=== PATIENT | male | born 1970 | race Caucasian/White ===

== ENCOUNTER 2017-11-12 23:22 | Emergency (ER) | payer SELFPAY ==
[2017-11-13] MEDS ORDERED: MORPHINE SULFATE 10 MG/ML INJ IV ONE (01:02)
[2017-11-13] MEDS ORDERED: ONDANSETRON HCL INJ/PF 4 MG/2 ML SDV IV ONE (01:02)
[2017-11-13] MEDS ORDERED: NORMAL SALINE 1000 ML 1,000 ML IV ONE (01:02)
--- NOTE | 2017-11-13 01:03 | ER Document Report ---
ED GI/ - General Chief Complaint: Abdominal Pain Stated Complaint: ABDOMINAL PAIN Time Seen by Provider: 11/13/17 00:52 Notes: Patient is a 47-year-old male who comes emergency department for chief complaint of nominal pain that wraps around to his back. Symptoms started yesterday with vomiting, improved but then returns suddenly today with severe pain and a dry heaving episode. Reports decreased urination but not dysuria, states he was shaking and broke out into a sweat earlier, no fever. Denies any abdominal surgeries, daily medications, he did pass a kidney stone once but otherwise denies any medical history. TRAVEL OUTSIDE OF THE [place] IN LAST 30 DAYS: No - Related Data Allergies/Adverse Reactions: No Known Allergies Allergy (Verified 03/21/15 17:20) Past Medical History - General Information source: Patient - Social History Smoking Status: Never Smoker Drug Abuse: None Lives with: Alone Family History: Arthritis, DM, Hypertension Renal/ Medical History: Reports: Hx Kidney Stones Musculoskeletal Medical History: Reports Hx Arthritis, Reports Hx Musculoskeletal Deformity, Reports Hx Musculoskeletal Trauma - Immunizations Immunizations up to date: No Hx Diphtheria, Pertussis, Tetanus Vaccination: No Review of Systems - Review of Systems Constitutional: No symptoms reported EENT: No symptoms reported Cardiovascular: No symptoms reported Respiratory: No symptoms reported Gastrointestinal: See HPI Genitourinary: See HPI Male Genitourinary: See HPI Musculoskeletal: No symptoms reported Skin: No symptoms reported Hematologic/Lymphatic: No symptoms reported Neurological/Psychological: No symptoms reported Physical Exam - Vital signs Vitals: Temp Pulse Resp BP Pulse Ox 97.4 F 70 20 115/76 99 11/12/17 23:40 11/12/17 23:40 11/12/17 23:40 11/12/17 23:40 11/12/17 23:40 - Notes Notes: GENERAL: Alert, interacts well. Patient does not appear to be in any distress. HEAD: Normocephalic, atraumatic. EYES: Pupils equal, round, and reactive to light. Extraocular movements intact. ENT: Oral mucosa moist, tongue midline. NECK: Full range of motion. Supple. Trachea midline. LUNGS: Clear to auscultation bilaterally, no wheezes, rales, or rhonchi. No respiratory distress. HEART: Regular rate and rhythm. No murmur ABDOMEN: Tender in the left mid to lower abdomen, remaining abdomen unremarkable EXTREMITIES: Moves all 4 extremities spontaneously. No edema, normal radial and dorsalis pedis pulses bilaterally. No cyanosis. BACK: no cervical, thoracic, lumbar midline tenderness. No saddle anesthesia, normal distal neurovascular exam. No CVA tenderness. NEUROLOGICAL: Alert and oriented x3. Normal speech. [cranial nerves II through XII grossly intact]. PSYCH: Normal affect, normal mood. SKIN: Warm, dry, normal turgor. No rashes or lesions noted. Course - Re-evaluation Re-evalutation: Patient is well-appearing on exam, he does have left lower abdominal pain on palpation but otherwise his examination is unremarkable. Vital signs unremarkable. CBC shows mild leukocytosis with elevation of neutrophils but no bandemia. Chemistry generally unremarkable. Urinalysis shows a lot of hematuria, trace leukocyte esterase and a few white blood cells. No nitrites or bacteria. Culture placed. Discussed with patient, decision was made to perform CAT scan. This shows 5 mm proximal ureteral stone on the left, some hydronephrosis and hydroureter. Discussed with patient again. Patient states he feels great, he is ready to go home. Discussed possible signs of early infection, consultation with [facility]. Patient declines. He states he is ready to leave, he does not want a follow-up out of town, he wants an in town referral. He states he will come back if he worsens in any way. He will be covered with Keflex in addition to symptom management. He states he will follow-up with local urology by calling on Wednesday. Stable at time of discharge. - Vital Signs Vital signs: Temp Pulse Resp BP Pulse Ox 97.4 F 62 14 124/79 98 11/13/17 05:14 11/13/17 05:14 11/13/17 05:14 11/13/17 05:14 11/13/17 05:14 - Laboratory Result Diagrams: 11/13/17 01:05 11/13/17 01:05 Laboratory results interpreted by me: 11/13/17 11/13/17 11/13/17 01:05 01:05 03:08 WBC 12.3 H Seg Neutrophils % 88.9 H Lymphocytes % 6.3 L Absolute Neutrophils 10.9 H BUN 23 H Glucose 111 H Urine Protein 30 H Urine Blood LARGE H Urine Urobilinogen 2.0 H Ur Leukocyte Esterase TRACE H Discharge - Discharge Clinical Impression: Left sided abdominal pain, Ureterolithiasis Condition: Stable Disposition: HOME, SELF-CARE Additional Instructions: Your passing a kidney stone. The stone is 5 mm, on the left side. You will need to be managed by urology, please see the referral below, call Wednesday to set up your close follow-up. Take medications as prescribed. We are covering with Keflex antibiotics just in case as well, we have a urine culture growing. Return immediately if you worsen including severe pain, uncontrolled vomiting, fever of 100.4 or greater, or any other concerning or worsening symptoms. [facility] [address] [place] [address] Prescriptions: Morphine Sulfate [Morphine Ir 15 Mg Tablet] 15 mg PO Q4HP PRN #20 tablet PRN Reason: Cephalexin Monohydrate [Keflex 500 mg Capsule] 500 mg PO BID #14 capsule Promethazine HCl [Phenergan 25 mg Tablet] 1 - 2 tab PO Q6H PRN #20 tablet PRN Reason:
[2017-11-13 01:18] LABS: ABSOLUTE EOSINOPHILS # (AUTO) 0.1 10^3/uL (0.0-0.6); ABSOLUTE LYMPHOCYTES (AUTO) 0.8 10^3/uL (0.5-4.7); ABSOLUTE MONOCYTES (AUTO) 0.5 10^3/uL (0.1-1.4); ABSOLUTE NEUT (AUTO) 10.9 10^3/uL (1.7-8.2); BASOPHILS % (AUTO) 0.4 % (0-2); EOSINOPHILS % (AUTO) 0.7 % (0-6); HEMOGLOBIN 14.9 g/dL (13.5-17.0); LYMPHOCYTES % (AUTO) 6.3 % (13-45); MEAN CORPUSCULAR HEMOGLOBIN 30.7 pg (27.0-33.4); MEAN CORPUSCULAR HGB CONC 34.7 g/dL (32.0-36.0); MEAN CORPUSCULAR VOLUME 89 fl (80-97); MONOCYTES % (AUTO) 3.7 % (3-13); PLATELET COUNT 311 10^3/uL (150-450); RED BLOOD COUNT 4.86 10^6/uL (4.35-5.55); RED CELL DISTRIBUTION WIDTH 13.3 % (11.5-14.0); SEGMENTED NEUTROPHILS % (AUTO) 88.9 % (42-78); TOTAL CELLS COUNTED % (AUTO) 100 %; WHITE BLOOD COUNT 12.3 10^3/uL (4.0-10.5)
[2017-11-13 01:37] LABS: ALANINE AMINOTRANSFERASE 27 U/L (21-72); ALKALINE PHOSPHATASE 97 U/L (38-126); ANION GAP 10 (5-19); ASPARTATE AMINO TRANSFERASE 21 U/L (17-59); BILIRUBIN,DIRECT 0.2 mg/dL (0.0-0.4); BILIRUBIN,TOTAL 0.3 mg/dL (0.2-1.3); BLOOD UREA NITROGEN 23 mg/dL (7-20); CALCIUM 9.4 mg/dL (8.4-10.2); CARBON DIOXIDE 30 mmol/L (22-30); CHLORIDE 103 mmol/L (98-107); GLUCOSE 111 mg/dL (75-110); LIPASE 56.4 U/L (23-300); POTASSIUM 4.3 mmol/L (3.6-5.0); SODIUM 142.6 mmol/L (137-145); TOTAL PROTEIN 6.7 g/dL (6.3-8.2)
[2017-11-13 03:33] LABS: APPEARANCE,URINE SLIGHTLY-CLOUDY; BILIRUBIN,URINE NEGATIVE (NEGATIVE); COLOR,URINE YELLOW; GLUCOSE, URINE NEGATIVE (NEGATIVE); KETONES,URINE NEGATIVE (NEGATIVE); LEUKOCYTE ESTERASE,URINE TRACE (NEGATIVE); NITRITE,URINE NEGATIVE (NEGATIVE); PROTEIN,URINE 30 mg/dL (NEGATIVE); URINE SPECIFIC GRAVITY 1.018
--- NOTE | 2017-11-13 04:30 | RADIOLOGY REPORT (SQ) ---
CT abdomen and pelvis without contrast on 11/13/2017 at 3:11 AM CLINICAL INDICATION: Sharp left abdominal pain, left-sided back pain, vomiting TECHNIQUE: Multiple axial images are obtained throughout the abdomen and pelvis without the administration of contrast. This exam was performed according to our departmental dose-optimization program, which includes automated exposure control, adjustment of the mA and/or kV according to patient size and/or use of iterative reconstruction technique. Total DLP is 390.84 mGy*cm. COMPARISON: None FINDINGS: Abdomen: There is slight elevation of the right hemidiaphragm. The lung bases are clear. There is mild left hydronephrosis and proximal hydroureter to the level of a 5 mm left proximal ureteral stone at the upper aspect of the L4 vertebral body level. There is mild left perinephric stranding related to the obstruction. There are no other renal or ureteral stones. The unenhanced solid abdominal organs are otherwise unremarkable. There is no abdominal adenopathy. Mild vascular calcifications are noted. There is no free fluid or free air within the abdomen. The abdominal portion of the GI tract is unremarkable. Pelvis: There is no free fluid in the pelvis. There is no pelvic adenopathy. The pelvic portion of the GI tract including the appendix is unremarkable. Degenerative changes are noted in the spine. IMPRESSION: 1. Mild left hydronephrosis and proximal hydroureter to the level of a 5 mm left proximal ureteral stone. 2. Otherwise no acute abnormality.
[2017-11-13] MEDS ORDERED: HYDROCODONE/ACETAMINOPHEN 5-325 MG (6 TAB/ER DISP) PO PRN (04:45)
[2017-11-13] MEDS ORDERED: ONDANSETRON ODT 4 MG TAB (6 TAB/ER DISP) PO PRN (04:45)
[2017-11-13] MEDS ORDERED: CEPHALEXIN 500 MG CAPSULE PO ONE (04:45)
[2017-11-13 05:17] VITALS: BP 124/79
== END 2017-11-13 05:17 | disposition home or self-care (01) ==
LOC: ER 23:22
DX: N13.2 Hydronephrosis with renal and ureteral calculous obstruction (principal); R31.9 Hematuria, unspecified; D72.828 Other elevated white blood cell count; I10 Essential (primary) hypertension
CPT/HCPCS: 99284; 96361; 96374; 96375; 36415; 87086; 83690; 85025; 80053; 81001; 76380; J2270; J2405; J7030